=== PATIENT | male | born 1950 | race Caucasian/White ===

== ENCOUNTER → 2018-11-05 08:11 | Outpatient (CLI) | payer MEDICARE, OTHER, SELFPAY | PROVIDERS: Visit Provider Family Medicine | DX: I20.0 Unstable angina (principal); Z53.9 Procedure and treatment not carried out, unspecified reason ==

== ENCOUNTER → 2018-11-26 07:33 | Outpatient (CLI) | payer MEDICARE, OTHER, SELFPAY ==
--- NOTE | 2018-11-26 09:25 | P.PCN_ITS ---
Cardiac Stress Test Report Referral & Results Date Patient Seen: 11/26/18 Indication: Chest pain Rest ECG: Unremarkable Procedure Note: Today following both written and verbal informed consent the patient was exercised according to a standard Socrates protocol patient went for a total of 8 minutes 18 seconds achieving a maximum heart rate of 48 maximum systolic blood pressure of 80. This is approximately 10.1 METS. Exercise was terminated at this point because of targets were met. Patient was also given Cardiolite through a previously started Hep-Lock IV by the diagnostic imaging staff approximately 1 minute prior to the cessation of exercise. No ST-T segment changes Occasional PVC including couplets Functional aerobic impairment rates-10% on the active scale 10% better than aver age Impression: No evidence of ischemia. Excellent exercise capacity. Please see perfusion imaging report as well Please note: Actual ECG tracings can be found in the PACS system.
--- NOTE | 2018-11-27 16:11 | DI.NM.S_ITS ---
DATE OF SERVICE: 11/26/2018 PROCEDURE: Exercise perfusion study. INDICATIONS: Chest pain with underlying diabetes mellitus, hypertension, hyperlipidemia. RADIOPHARMACEUTICAL: 26.6 mCi technetium-99m Myoview IV was injected at stress and 24.3 mCi technetium-99m Myoview IV was injected at rest. CARDIAC STRESS: Patient underwent exercise perfusion study under the supervision of an attending staff. He walked on Socrates protocol for 8 minutes 18 seconds and achieved 97% of target heart rate. Baseline blood pressure 128/84. Maximum blood pressure 180/100. Baseline EKG revealed sinus rhythm with RSR-complex in V1 to V2. Stress EKG did not reveal any obvious inducible ischemic changes. Occasional PVCs were seen. Patient achieved 10.1 METs of workload, functional aerobic impairment, -10%. RAW DATA: There was increased subdiaphragmatic activity. GATED STUDY: Stress LV ejection fraction 84, and resting LV ejection fraction 60%. No obvious wall motion abnormalities. Resting end-diastolic volume is 111 mL. No transient ischemic dilatation. TID ratio is 0.63, which is within normal limits. Lung/heart ratio is 0.38, which is within normal limits. MYOCARDIAL PERFUSION SCAN: Stress supine, resting supine images revealed small- to-moderate sized mild-to moderately decreased perfusion of inferior wall, inferior apex, and basal inferolateral wall which got completely resolved during prone images suggestive of tissue attenuation artifact. No convincing ischemia infarction. CONCLUSION: I will call this study a normal myocardial perfusion study with evidence of diaphragmatic tissue attenuation artifact which got resolved during prone images. Good exercise tolerance. Functional aerobic impairment -10%. No significant arrhythmias. Overall, left ventricular (LV) function is preserved. This is a low-risk myocardial perfusion scan. Ozzie Reilly - OFFICE CASHIER/fn/ab doc#: [id number]/job#: [id number] dd: 11/27/2018 12:58:00 dt: 11/27/2018 15:57:00 DICTATING MD/COPIES TO: Dorys Gross MD COPIES MNE: BEVERLY
== END ==
PROVIDERS: Visit Provider Family Medicine
DX: I20.0 Unstable angina (principal); E11.9 Type 2 diabetes mellitus without complications; I10 Essential (primary) hypertension; E78.5 Hyperlipidemia, unspecified
CPT/HCPCS: 78452; 93016; 93017; 93018; A9502

== ENCOUNTER 2021-07-20 14:14 | Outpatient (RCR) | payer MEDICARE, OTHER, SELFPAY ==
--- NOTE | 2021-07-20 15:30 | ST.OPIE ---
Visit Care Team Role Provider Type Maureen Vázquez MD Attending Provider Physician Primary Care Provider Referring Provider Specialty: Family Practice Address: [address] [place] [address], [address], [place], [address] Email: [email or web address] Speech-Language Pathology Initial Evaluation [employer] Voice Resonance Evaluation Start: 07/20/21 14:38 Freq: Status: Active Protocol: Document 07/20/21 14:38 ZS (Rec: 07/20/21 15:25 ZS [id number]) Voice and Resonance Assessment Session Time Visit Start Time 14:30 Visit Stop Time 15:00 Total Visit Minutes 30 Visit Information Visit Number Initial Evaluation Insurance Information Medicare Referral Referring Physician Dr. Vázquez Reason for Referral Dysphonia Setting Setting Outpatient Care Patient History General Information Ozzie is a 71 year old male with a history of chronic rhinius, acid reflux, and asthma. He was previously on an Advair medication to manage his asthma, but discontinued this as he believed it was negatively impacting his voice . He is allergic to pollens, horses, dogs, and fin fish. Ozzie was referred due to concerns for hoarseness, reduced volume, and running out of air while talking. 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 Hearing Hearing Level Normal Vision Vision Status Impaired Comments Wears corrective lenses [place] Langauge Language(s) Spoken in the Home Iranian Educational Status Education Level Masters Previous Therapy Previous Speech-Language Therapy No Oral Motor Assessment Source: Spanish [employer] ([employer]). Oral-Motor Eval Completed No Subjective Subjective Ozzie reported he discontinued advair medication about a month ago as he suspected it caused hoarseness and reduced volume. Once he discontinued advair, his voice has improved. Ozzie reported he feels good about his voice now and he can be understood easier in-person and on the phone. He indicated he has had a hoarse voice for many years prior to starting advair and his voice is back to normal at this time. Ozzie reported he still has difficulty with running out of air while talking and has an appointment with his asthma and yard specialist to determine new asthma medication. Ozzie indicated his voice will become increasingly hoarse through the day if he has several meetings where he is talking in a large group. - Laryngeal Performance S/Z Ratio S/Z Ratio 0.93 Functional for Speech Yes Voice Handicap Index Function Subtotal 10 Physical Subtotal 7 Emotional Subtotal 5 Total Score 22 Severity Mild (0-30) Maximum Phonation Time MPT Norms: Women (15-25) Men (25-35) Loudness (50-60 dB); Speaking Rate: Oral Reading of Sentences (190 Words Per Minute); Oral Reading of Paragraphs (160-170 WPM); Speaking Rate in Conversation (150-250 WPM) Maximum Phonation Time 10.3 seconds Maximum Phonation Time Reduced Maximum Phonation Time Comments Ozzie presents with a reduced maximum phonation time though this is likely a result of modified asthma medications that reduce respiration support for speech purposes. Ozzie indicated he does not often run out of breath while talking and when he does, it is often remedied by taking a deeper breath before starting a sentence. Conversational loudness: 70 dB, readin dB, sustained /a/ avg.: 67.3 dB. Pitch Purdy Pitch Purdy WNL Pitch Purdy Comments Max pitch with sustained /a/: 344 Hz, avg. 310 Hz. Min pitch with sustained /a/: 108 Hz, avg. 111.3 Hz. Volume during pitch glides avg. 73.3 dB. Good vocal quality and steady increase of pitch during glide . Voice Pitch Range Norms: Women (100-300 Hz) Men (70-250 Hz) Fundamental Frequency Norms: Women (Mean: 225 Hz; Range: 155-334 Hz) Men ( Mean: 128 Hz; Range: 85-196 Hz) Voice Pitch Normal Voice Loudness Normal Voice Phonatory-based Quality Normal,Hoarse Paradoxical Vocal Fold Movement No Indications Resonance Nasal Resonance Normal Oral Resonance Normal Findings Findings No Impairment Observations Ozzie presents with vocal quality WNL. He has mild hoarseness, but reported this is WNL for him. Following discontinuation of advair about 1 month ago, Ozzie's voice has returned to baseline per pt report. He presents with pitch range, pitch, and volume WNL during a variety of tasks. His s/z ratio is WNL and he is 100% intelligible. Ozzie reported his voice will become increasingly hoarse if he engages in multiple meetings during a day. Provided patient education regarding vocal hygiene and use and pt demonstrated understanding of strategies. Therapy is not indicated at this time. - Recommendations Treatment Recommended No Patient/Caregiver Education Patient/Family Education Described results of evaluation,Patient Understanding,Patient Demonstration Vocally Abusive Behavior Behavior Rating Alcohol Consumption Never Caffeine Use Occasionally Cheerleading Participation Never Smoking Never
== END 2021-07-22 13:27 ==
LOC: SP 14:14
PROVIDERS: PCP Student in an Organized Health Care Education/Training Program; Referring Provider Student in an Organized Health Care Education/Training Program; Visit Provider Student in an Organized Health Care Education/Training Program
DX: R49.0 Dysphonia (principal)
CPT/HCPCS: 92524

== ENCOUNTER → 2024-07-15 07:41 | Outpatient (CLI) | payer MEDICARE, SELFPAY ==
[2024-07-15 08:04] LABS: Add Manual Diff / Slide Review NO; Basophils Absolute Auto 100 /uL (0-100); Basophils Percent Auto 1.3 % (0-2); Eosinophils Absolute Auto 300 /uL (0-450); Eosinophils Percent Auto 8.4 % (2-4); Hematocrit 36.5 % (41-53); Hemoglobin 12.4 g/dL (13.5-17.5); Lymphocytes Absolute Auto 1600 /uL (1100-4500); Lymphocytes Percent Auto 38.6 % (25-40); Mean Corpuscular HGB Conc 33.8 % (30-36); Mean Corpuscular Hemoglobin 31.7 PG (26-34); Mean Corpuscular Volume 93.6 fL (80-100); Monocytes Absolute Auto 500 /uL (0-900); Monocytes Percent Auto 11.5 % (3-14); Neutrophils Absolute Auto 1600 /uL (1500-7000); Neutrophils Percent Auto 40.2 % (50-75); Platelet Count 212 X10^3/uL (150-400); Red Blood Cell Count 3.91 X10^6/uL (4.5-5.9); Red Cell Distribution Width 13.1 % (11.6-14.8)
[2024-07-15 08:29] LABS: Alanine Aminotransferase 21 IU/L (<50); Albumin 4.2 g/dL (3.5-5.0); Albumin Globulin Ratio 1.7 (1.0-2.8); Alkaline Phosphatase 46 U/L (38-126); Aspartate Aminotransferase 30 IU/L (17-59); BUN Creatinine Ratio 23.8 (6-22); Bilirubin Total 0.8 mg/dL (0.2-1.3); Blood Urea Nitrogen 24 mg/dL (9-20); Calcium 9.7 mg/dL (8.4-10.2); Carbon Dioxide 29 mmol/L (22-32); Chloride 104 mmol/L (98-107); Cholesterol 181 mg/dL (140-199); Estimated Glomerular Filt Rate > 60 mL/min (>60); Globulin 2.5 g/dL (1.7-4.1); Glucose 107 mg/dL (80-110); HDL Cholesterol 63 mg/dL (40-60); HEMOLYSIS < 15 (0-50); LDL Cholesterol Calculated 107 mg/dL (<100); Potassium 4.2 mmol/L (3.4-5.1); Sodium 139 mmol/L (137-145); Total Protein 6.7 g/dL (6.3-8.2); Triglycerides 57 mg/dL (35-150)
[2024-07-15 08:57] LABS: Prostate Specific Antigen Scrn 1.87 ng/mL (0.1-4.0)
== END ==
PROVIDERS: PCP Family Medicine; Referring Provider Family Medicine; Visit Provider Family Medicine
DX: J45.40 Moderate persistent asthma, uncomplicated (principal); I10 Essential (primary) hypertension; Z12.5 Encounter for screening for malignant neoplasm of prostate; N40.0 Benign prostatic hyperplasia without lower urinary tract symptoms; K21.9 Gastro-esophageal reflux disease without esophagitis
CPT/HCPCS: 36415; 80053; 80061; 85025; G0103